=== PATIENT | female | born 1960 | race Caucasian/White ===

== ENCOUNTER 2022-07-25 17:41 | Emergency (ER) | payer MEDICAID, SELFPAY ==
[2022-07-25 17:43] VITALS: BP 150/84; PULSE 92; RESP 16; TEMP 36.4; O2SAT 100; BMI 29.9
--- NOTE | 2022-07-25 18:58 | EDS_ITS ---
HPI <LENI Rivera - Last Filed: 07/25/22 19:43> History of Present Illness Chief Complaint: GI Bleed Narrative Narrative: 62-year-old female is scheduled to have a routine colonoscopy tomorrow and was drinking gavilyte. She drank about 3/4 of the bottle and started to have abdominal cramping and vomiting this afternoon. After about 2-3 episodes of vomiting she had a small red streak of blood that occurred twice. On the final episode of vomiting it looked like coffee grounds. She states she now feels completely better has no nausea no abdominal pain. She is starting to have regular bowel movements with no hematochezia or melena. She is not on blood thinners. PFSH <LENI Rivera - Last Filed: 07/25/22 19:43> [facility] Home Medications ascorbic acid (vitamin C) 500 mg capsule mg PO 06/27/20 [History Last Taken Unknown] cholecalciferol (vitamin D3) 25 mcg (1,000 unit) capsule 25 mcg PO DAILY 06/27/20 [History Last Taken Unknown] cyclobenzaprine 10 mg tablet 10 mg PO TID PRN muscle spasm #30 tabs 06/27/20 [Rx Last Taken Unknown] cyclobenzaprine 5 mg tablet tab PO 06/27/20 [History Last Taken Unknown] ibuprofen 600 mg tablet 600 mg PO TID PRN pain #60 tabs 06/27/20 [Rx Last Taken Unknown] ibuprofen 600 mg tablet tab PO 06/27/20 [History Last Taken Unknown] magnesium 250 mg tablet 250 mg PO DAILY 06/27/20 [History Last Taken Unknown] methylprednisolone 4 mg tablets in a dose pack (Medrol (Saleem)) See Rx Instructions PO PER PKG DIR #21 tabs 06/27/20 [Rx Last Taken Unknown] multivitamin 1 tab PO DAILY 06/27/20 [History Last Taken Unknown] Allergy/AdvReac Type Severity Reaction Status Date / Time morphine Allergy Severe Swelling, Verified 06/27/20 09:04 itching Sulfa (Sulfonamide Allergy Severe swelling Verified 06/27/20 09:04 Antibiotics) Tetanus Vaccines and Toxoid Allergy Severe swelling Verified 06/27/20 09:04 bee venom protein (honey bee) Allergy Swelling Verified 07/25/22 17:42 [bee stings] ROS <LENI Rivera - Last Filed: 07/25/22 19:43> ROS ED ROS Narrative Constitutional: Negative for fever, chills, malaise. CVS: Negative for palpitations, chest pain, syncope. Respiratory: Negative for shortness of breath, cough, orthopnea. GI: Positive for abdominal pain, nausea, vomiting. Negative for diarrhea, constipation, melena, hematochezia. Skin: Negative for rash, abscess, or wound. Musc: Negative for joint pain, swelling, trauma. Heme: Negative for easy bruising, bleeding, lymphadenopathy. EXAM <LENI Rivera - Last Filed: 07/25/22 19:43> Physical Exam Narrative Exam Narrative: CONST: Patient sitting in no acute distress. EYES: Normal inspection. ENT: Normal inspection, moist mucous membranes. NECK: Normal inspection. RESP: No respiratory distress, CTAB. CVS: Regular rate and rhythm, no murmur, no gallop. ABD: Soft and nontender, no guarding or rebound, nondistended. SKIN: Color normal, no rash, warm, dry, intact. EXTREMITIES: Normal appearance, no pedal edema. NEURO: Oriented x4. PSYCH: Normal affect. Const Vital Signs: 07/25/22 17:43 Temperature 97.6 F L Temperature Source Temporal Pulse Rate 92 Respiratory Rate 16 Blood Pressure 150/84 H Blood Pressure Mean 106 Pulse Ox 100 Oxygen Delivery Method Room Air <Dr. Alexis Jones DO - Last Filed: 07/25/22 19:40> Physical Exam Const Vital Signs: 07/25/22 17:43 Temperature 97.6 F L Temperature Source Temporal Pulse Rate 92 Respiratory Rate 16 Blood Pressure 150/84 H Blood Pressure Mean 106 Pulse Ox 100 Oxygen Delivery Method Room Air MDM <LENI Rivera - Last Filed: 07/25/22 19:43> MDM MDM Narrative Medical decision making narrative: Patient was drinking her bowel prep was most of the way through the bottle when she started to have abdominal cramping and nausea and vomiting. After vomiting several times she had small red streaks of blood. On the final episode of emesis looked like more coffee grounds mixed in. She now feels completely fine with no nausea vomiting or abdominal pain. She has normal vital signs. She has moist mucous membranes. Normal heart and lung sounds. Abdomen is soft, nontender, nondistended. CBC shows white count of 14.2 likely reactive from vomiting, normal hemoglobin, and normal BMP. Patient is asymptomatic here and is stable for discharge. She likely had a small Paulette-Story tear causing the bleeding. I do not think she has Boerhaave's as she has no chest or abdominal pain and normal vital signs. No indication for imaging. Patient was discharged and will follow-up with her GI doctor in the morning as scheduled. Lab Data Attestation: I reviewed the patient's lab results. Labs: Laboratory Results - last 24 hr 07/25/22 07/25/22 19:10 19:10 WBC 14.2 H RBC 4.92 Hgb 14.7 Hct 45.2 MCV 91.9 MCH 29.9 MCHC 32.5 RDW Std Deviation 50.4 H RDW Coeff of Su 15.1 H Plt Count 433 MPV 9.7 Immature Gran % (Auto) 0.600 Neut % (Auto) 65.2 Lymph % (Auto) 24.7 [place] % (Auto) 7.0 Eos % (Auto) 1.8 Baso % (Auto) 0.7 Absolute Neuts (auto) 9.3 H Absolute Lymphs (auto) 3.51 Nucleated RBC % 0 Sodium 139 Potassium 4.1 Chloride 105 Carbon Dioxide 25.0 Anion Gap 9 BUN 14 Creatinine 0.85 Estim Creat Clear Calc 57.49 Est GFR (MDRD) Af Amer 87 Est GFR (MDRD) Non-Af 72 BUN/Creatinine Ratio 16.4 Glucose 105 Calcium 9.2 <Dr. Alexis Jones, DO - Last Filed: 07/25/22 19:40> [facility] Lab Data Labs: Laboratory Results - last 24 hr 07/25/22 07/25/22 19:10 19:10 WBC 14.2 H RBC 4.92 Hgb 14.7 Hct 45.2 MCV 91.9 MCH 29.9 MCHC 32.5 RDW Std Deviation 50.4 H RDW Coeff of Su 15.1 H Plt Count 433 MPV 9.7 Immature Gran % (Auto) 0.600 Neut % (Auto) 65.2 Lymph % (Auto) 24.7 [place] % (Auto) 7.0 Eos % (Auto) 1.8 Baso % (Auto) 0.7 Absolute Neuts (auto) 9.3 H Absolute Lymphs (auto) 3.51 Nucleated RBC % 0 Sodium 139 Potassium 4.1 Chloride 105 Carbon Dioxide 25.0 Anion Gap 9 BUN 14 Creatinine 0.85 Estim Creat Clear Calc 57.49 Est GFR (MDRD) Af Amer 87 Est GFR (MDRD) Non-Af 72 BUN/Creatinine Ratio 16.4 Glucose 105 Calcium 9.2 Treatment and Re-Evaluation Narrative: I have personally performed a face to face assessment of the patient and have reviewed the JEWELL Note. I performed a substantive portion of the visit including all aspects of the following. My martins findings include: History: Patient presents with hematemesis that began today. Patient states she was taking GoLytely for bowel prep for a colonoscopy that is scheduled for tomorrow. Patient states that she had some vomiting with this. Patient states she noted a small streak of blood in her emesis. Patient states that on another episode of vomiting she had what appeared to be some small amounts of coffee grounds. Currently, the patient denies any abdominal pain, cramping, nausea, or vomiting. Patient states he feels better now. Patient denies any fevers or chills. Exam: Vital signs are stable. Patient is afebrile. Patient is in no acute distress. Oral mucosa is pink and moist. Neck is supple. Trachea is midline. There is no JVD. Heart was regular rate and rhythm. Lungs are clear and equal bilaterally. Abdomen is soft. Bowel sounds are normal. There is no tenderness. There is no rebound or guarding noted. Cranial nerves II through XII are intact. There are no focal motor or sensory deficits noted. Medical Decision Making: Differential diagnosis includes upper gastrointestinal bleeding, stomach ulcer, Paulette-Story tear, or gastritis. CBC will be obtained to assess for leukocytosis and anemia. This was reviewed. There is a mild leukocytosis of 14.2. This is likely due to the vomiting. Hemoglobin was stable at 14.7 and hematocrit was 45.2. Basic metabolic profile will be obtained to assess for electrolyte abnormality and renal function. This was reviewed and was within normal limits. Patient was instructed to contact her surgeon tomorrow for further instructions on her bowel prep. Patient was instructed to follow-up tomorrow as scheduled. Patient understood and was agreeable with the plan. All questions were answered. Discharge Plan Triage Chief Complaint: GI Bleed ED Midlevel Provider: Natalia Mallory ED Provider: Schwiger,Alexis Dx/Rx/DC Orders Clinical Impression: Hematemesis Instructions: ED Upper GI Bleeding (Stable) Prescriptions: No Action cyclobenzaprine 5 mg tablet PO ibuprofen 600 mg tablet PO ascorbic acid (vitamin C) 500 mg capsule PO cholecalciferol (vitamin D3) 25 mcg (1,000 unit) capsule 25 mcg PO DAILY magnesium 250 mg tablet 250 mg PO DAILY multivitamin Tablet 1 tab PO DAILY ibuprofen 600 mg tablet 600 mg PO TID PRN (Reason: pain) Qty: 60 0RF Rx Instructions: take for 1 week regularly then may taper. cyclobenzaprine 10 mg tablet 10 mg PO TID PRN (Reason: muscle spasm) Qty: 30 1RF methylprednisolone [Medrol (Saleem)] 4 mg tablets,dose pack See Rx Instructions PO PER PKG DIR Qty: 21 0RF Rx Instructions: take as directed PO per package directions; Primary Care Provider: Polly Benavidez NP Referrals: Polly Benavidez NP, [employer] [Primary Care Provider] - Activity Restrictions/Additional Instructions: Call your GI doctor tomorrow morning for further instructions regarding your bowel prep. Disposition Disposition: Home, Self Care
[2022-07-25 19:20] LABS: Absolute Lymphocyte Count 3.51 X10^3/uL (0.83-4.51); Absolute Neutrophil Count 9.3 X10^3/uL (2.0-7.7); Basophil% 0.7 % (0-1); Eosinophil# 0.26 X10^3/uL; Eosinophils% 1.8 % (0-5); Hematocrit 45.2 % (37-47); Hemoglobin 14.7 g/dL (12.0-15.0); Lymphocyte # 3.51 X10^3/ul (0.83-4.51); Lymphocyte % 24.7 % (19-41); Mean Corp Hgb Conc 32.5 g/dL (32-36); Mean Corpuscular Hgb 29.9 pg (27.0-32.0); Mean Corpuscular Volume 91.9 fL (81-99); Mean Platelet Vol. 9.7 fl (6.2-12.0); NRBC Flagged by Analyzer 0 % (0-5); Neutrophil # 9.27 X10^3/uL (2.7-7.7); Neutrophil % 65.2 % (47-70); Platelet Count 433 K/mm3 (150-450); RBC Distribution Width CV 15.1 % (11.6-14.6); RBC Distribution Width SD 50.4 fl (35.1-43.9); Red Blood Count 4.92 M/mm3 (4.2-5.4); White Blood Count 14.2 K/mm3 (4.4-11.0)
[2022-07-25 19:38] LABS: Anion Gap 9 (5-15); BUN 14 mg/dL (7-18); BUN/Creat Ratio 16.4 RATIO (10-20); Calcium,Total 9.2 mg/dL (8.5-10.1); Chloride 105 mmol/L (98-107); Creatinine, Serum 0.85 mg/dL (0.55-1.02); EST Glomerular Filtration Rate 72 mL/min (>60); Est Glom Filt Rate - Afr Amer 87 mL/min (>60); Estimated Creatinine Clearance 57.49 ml/min; Glucose 105 mg/dL (74-106); Potassium 4.1 mmol/L (3.5-5.1); Sodium Level 139 mmol/L (136-145)
== END 2022-07-25 19:55 | disposition home or self-care (01) ==
PROVIDERS: Physician Assistant; Emergency Provider Emergency Medicine; PCP Registered Nurse; Visit Provider Emergency Medicine
DX: K92.0 Hematemesis (principal); R10.9 Unspecified abdominal pain
CPT/HCPCS: 80048; 85025; 99282